=== PATIENT | male | born 1965 | race Caucasian/White ===

== ENCOUNTER 2020-10-16 14:51 | Outpatient (REF) | payer OTHER, SELFPAY ==
--- NOTE | ~2020-10-16 | XR_ITS ---
EXAMINATION: CR X-RAY HAND AND WRIST BILATERAL CLINICAL INFORMATION: Bilateral hand and wrist pain. COMPARISON: None TECHNIQUE: 4 views each of the bilateral hand and wrist were obtained. FINDINGS: There is no acute fracture or dislocation. The joint spaces are unremarkable. The carpal bones are normally aligned. The distal radius and ulna are intact. The soft tissues are unremarkable. XR/XR hand wrist RT IMPRESSION: Unremarkable study.
--- NOTE | ~2020-10-16 | XR_ITS ---
EXAMINATION: CR X-RAY HAND AND WRIST BILATERAL CLINICAL INFORMATION: Bilateral hand and wrist pain. COMPARISON: None TECHNIQUE: 4 views each of the bilateral hand and wrist were obtained. FINDINGS: There is no acute fracture or dislocation. The joint spaces are unremarkable. The carpal bones are normally aligned. The distal radius and ulna are intact. The soft tissues are unremarkable. XR/XR hand wrist LT IMPRESSION: Unremarkable study.
[2020-10-16 16:00] LABS: MANUAL DIFF FLAG NO
[2020-10-16 16:03] LABS: Basophils Percent Auto 0.4 % (0-2); Eosinophils Absolute Auto 0.1 X10*3/uL (0.0-0.4); Eosinophils Percent Auto 0.9 % (0-4); Hematocrit 42.4 % (42-52); Hemoglobin 14.2 g/dl (14.0-18.0); Imm Gran Abs Auto 0.02 X10*3/uL (0.00-0.03); Imm Gran Pct Auto 0.2 % (0.0-0.4); Lymphocytes Absolute Auto 3.1 X10*3/uL (1.2-4.9); Lymphocytes Percent Auto 32.2 % (20-40); Mean Corpuscular HGB Conc 33.5 g/dl (31.0-36.0); Mean Corpuscular Volume 86.5 fL (80-98); Mean Platelet Volume 11.5 fL (9.4-12.4); Monocytes Absolute Auto 0.9 X10*3/uL (0.1-1.2); Monocytes Percent Auto 8.9 % (2-11); Neutrophils Absolute Auto 5.5 X10*3/uL (2.0-8.3); Neutrophils Percent Auto 57.4 % (45-73); Platelet Count 211 X10*3/uL (160-400); Red Cell Distribution Width 12.9 % (11.0-16.0); White Blood Count 9.6 X10*3/uL (4.8-10.8)
[2020-10-16 16:31] LABS: Alanine Aminotransferase 35 U/L (0-40); Albumin Level 4.4 g/dL (3.5-5.0); Alkaline Phosphatase 67 U/L (39-117); Anion Gap 13 (12-20); Aspartate Amino Transferase 26 U/L (5-37); Bilirubin Total 0.5 mg/dL (0.0-1.0); Blood Urea Nitrogen 14 mg/dL (9-16); C Reactive Protein 0.15 mg/dL (< or = 0.50); Calcium 9.5 mg/dL (8.4-10.2); Carbon Dioxide 27 mmol/L (22-29); Chloride 106 mmol/L (96-108); Estimated Glomerular Filt Rate > 60; Glucose Random 94 mg/dL (60-115); Potassium 3.8 mmol/L (3.3-5.1); Rheumatoid Factor < 15.0 IU/mL (<15.0); Sodium 142 mmol/L (135-145); Total Protein 7.3 g/dL (6.5-8.0)
[2020-10-16 16:51] LABS: Thyroid Stimulating Hormone 0.85 uIU/mL (0.32-4.0)
[2020-10-16 17:32] LABS: Erythrocyte Sedimentation Rate 6 MM/HR (0-15)
[2020-10-17 12:26] LABS: Antibody to SS-A Antigen <1.0 NEG AI (<1.0 NEG); Antibody to SS-B Antigen <1.0 NEG AI (<1.0 NEG)
[2020-10-17 13:42] LABS: Anti Nuclear Antibody Screen NEGATIVE (NEGATIVE)
[2020-10-18 12:57] LABS: Cyclic Citrullinated Peptide <16 UNITS
== END 2020-10-16 14:52 | disposition home or self-care (01) ==
LOC: HO.LAB 14:51
PROVIDERS: PCP Internal Medicine; Visit Provider Student in an Organized Health Care Education/Training Program
DX: M79.89 Other specified soft tissue disorders (principal); Z79.899 Other long term (current) drug therapy
CPT/HCPCS: 36415; 73110; 73130; 80053; 84443; 85025; 85652; 86038; 86039; 86140; 86200; 86235; 86431; 99202

== ENCOUNTER 2020-11-28 08:01 | Outpatient (REF) | payer OTHER, SELFPAY ==
--- NOTE | ~2020-11-28 | MR_ITS ---
EXAMINATION: MRI HAND WITHOUT AND WITH CONTRAST, RIGHT MRI HAND WITHOUT AND WITH CONTRAST, LEFT CLINICAL INFORMATION: Other specified soft tissue disorders. Bilateral hand and wrist pain. Bilateral hand swelling. No strength. History of carpal tunnel surgery. COMPARISON: Radiographs dated 10/16/2020. TECHNIQUE: Multiplanar MR imaging was obtained through the right hand and through the left hand (separate studies) on a 1.5 Ibis magnet before and after the intravenous administration of 10 mL of Gadavist. FINDINGS: RIGHT HAND: [id number] osteoarthritis in the 1st CMC joint is characterized by nonuniform articular cartilage loss and marginal osteophytes. Additional mild osteoarthritis is evident in the triscaphe and distal radioulnar joints as well as the thumb MCP and interphalangeal joints. Mild osteoarthritic changes including osteophytes and articular cortical irregularity are also suspected at the DIP joints at the distal margin of the study. There is focal subchondral cystic change within the radial aspect of the hamate with mild surrounding edema, potentially corresponding to a small intraosseous ganglion cyst. A small cyst within the 4th metacarpal head does not demonstrate significant enhancement and also likely corresponds to a carpal cyst or geode. No significant erosions are identified in the hand. No synovitis or periostitis. Periarticular soft tissues are, in general, normal in signal intensity without significant inflammatory change. Tendons are intact without tears, tendinosis, or tenosynovitis. Intrinsic hand musculature is normal in signal intensity. Carpal tunnel is unremarkable. By report, there is a history of carpal tunnel surgery, though all of the flexor tendons and the majority of the cross-section of the median nerve resides deep to a line connecting the palmar surface of the hamate to the palmar aspect of the triquetral ridge, indicating minimal decompression. No significant subcutaneous nodules are identified. No abnormal enhancement in the subcutaneous soft tissues. LEFT HAND: Assessment of the thumb metacarpal is somewhat limited due to inhomogeneous fat saturation resulting in increased signal within the metacarpal on T2 fat-saturated sequences. Similar to the contralateral side, there is bydu-tv-[id number] osteoarthritis at the 1st CMC joint with nonuniform articular cartilage loss and marginal osteophytes. Xwnk-zo-qddtepqa osteoarthritis is also present at the thumb MCP joint. More mild osteoarthritis is evident within the triscaphe joint, distal radioulnar joint, thumb interphalangeal joint, and the imaged portions of the DIP joints. No significant marrow signal abnormalities. No abnormal erosions, effusions, or synovitis. Tendons are intact without tear or tendinosis. No significant tenosynovitis. Trace tenosynovial enhancement at the flexor tendons to the index and long fingers is within normal limits. Guyon's canal is unremarkable. Postsurgical changes of prior carpal tunnel release are evident. Of note, the majority of the tendons of the carpal tunnel are palmar to a line connecting margin at the hook of hamate with the palmar margin of the triquetral ridge. The median nerve resides at this level. There is residual low-signal intensity fibrous tissue in place at the level of the flexor retinaculum which may be due to recurrent scarring and closure of the carpal tunnel. The nerve itself is unremarkable on these images, though a normal wrist protocol MRI would be more appropriate for carpal tunnel assessment. MR/MR hand LT wo/w con IMPRESSION: 1. 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 No evidence of inflammatory arthropathy. 2. Subtle postsurgical changes of prior carpal tunnel release, more apparent on the left than on the right. Of note, there is limited palmar displacement of the tendons and median nerve at the level of the carpal tunnels (more notably on the right) which raises the possibility of insufficient release. Residual low-signal intensity tissue is present in the region of both flexor retinacula, potentially due to scar tissue/retinacular regrowth.
== END 2020-11-28 08:02 | disposition home or self-care (01) ==
LOC: HO.MRI 08:01
PROVIDERS: Visit Provider Student in an Organized Health Care Education/Training Program
DX: M79.89 Other specified soft tissue disorders (principal)
CPT/HCPCS: 73220; A9585

== ENCOUNTER → 2020-12-17 09:49 | Outpatient (BNVA) | payer OTHER, SELFPAY | PROVIDERS: PCP Internal Medicine; Visit Provider Student in an Organized Health Care Education/Training Program | DX: M79.89 Other specified soft tissue disorders (principal) | CPT/HCPCS: 99212 ==